=== PATIENT | female | born 1970 | race Caucasian/White ===

== ENCOUNTER 2019-09-20 10:20 | Emergency (ER) | payer BC, SELFPAY ==
--- NOTE | ~2019-09-20 | XR_ITS ---
EXAMINATION: XR chest 1V portable DATE: 09/20/2019 11:11 INDICATION: Cough and right flank pain TECHNIQUE: frontal view of the chest was obtained. COMPARISON: Chest radiograph dated 08/06/2018 FINDINGS: Patchy airspace opacities in the left mid and bilateral lower lung zones. No pleural effusion or pneu mothorax. The cardiomediastinal silhouette is normal. Mild thoracic dextroscoliosis. IMPRESSION: 1. Patchy bilateral airspace disease concerning for pneumonia with differential including atelectasis or less likely pulmonary edema. Reviewed, dictated and finalized at location A.
[2019-09-20 10:51] VITALS: BP 128/88; PULSE 96; RESP 18; TEMP 36.9; O2SAT 95
[2019-09-20 10:57] LABS: Basophils Percent Auto 0.2 % (0.2-1.2); Hematocrit 39.1 % (37.0-47.0); Hemoglobin 12.9 g/dL (12.0-15.0); Immature Granulocyte Absolute 0.02 K/mm3 (0.00-0.031); Immature Granulocyte Percent A 0.3 % (0-0.5); Lymphocytes Absolute Auto 1.61 K/mm3 (0.9-3.2); Mean Corpuscular Hemoglobin 28.3 pg (26-34); Mean Corpuscular Volume 85.7 fl (80-100); Mean Platelet Volume 10.3 fl (7.4-10.4); Monocytes Absolute Auto 0.4 K/mm3 (0.1-0.6); Monocytes Percent Auto 7.2 % (2.6-8.5); Neutrophils Absolute Auto 3.9 K/mm3 (1.3-6.7); Neutrophils Percent Auto 65.3 % (45.5-73.1); Platelet Count Result 234 k/mm3 (150-375); Red Blood Count 4.56 M/mm3 (4.2-5.4); Red Cell Distribution Width 13.7 % (11.5-14.5)
[2019-09-20 11:00] LABS: Add Urine Microscopic? YES; Appearance Urine Clear (Clear); Bacteria Urine Trace /hpf; Bilirubin Urine Negative (Negative); Blood Urine 2+ (Negative); Color Urine Yellow (Yellow); Glucose Urine UA Negative (Negative); Ketones Urine Negative (Negative); Leukocyte Esterase Ur Negative LEU/UL (Negative); Mucus Urine Rare /lpf; Nitrate Urine Negative (Negative); Protein Urine Negative (Negative); Specific Grav Ur 1.011 (1.001-1.035); Squamous Epithelial Cell Urine Moderate /hpf (Few); Urobilinogen Urine Negative mg/dL (<2.0); WBC Urine 0-3 /hpf
--- NOTE | 2019-09-20 11:04 | ED.ABDPAIN ---
HPI - Abdominal Pain General Chief Complaint: Abdominal Pain <BARBI Fan Last Filed: 09/20/19 12:33> Stated Complaint: r flank pain <BARBI Fan Last Filed: 09/20/19 12:33> Time Seen by Provider: 09/20/19 10:23 <BARBI Fan Last Filed: 09/20/19 12:33> Source: patient <BARBI Fan Last Filed: 09/20/19 12:33> Mode of arrival: ambulatory <BARBI Fan Last Filed: 09/20/19 12:33> Limitations: no limitations <Francesco Garcia PA-C - Last Filed: 09/20/19 12:33> History of Present Illness HPI narrative: Patient is a 49-year-old female who presents to emergency department for evaluation of right CVA pain worse with movement noting some nausea is also been having congestion productive cough of green phlegm with fever and chills has been taking [id number] medications with minimal improvement on arrival to emergency department patient in the room in no distress patient denies dysuria hematuria. Patient notes she had some loose stools that started today. Patient denies any dyspnea <BARBI Fan Last Filed: 09/20/19 12:33> Related Data Home Medications: Home Medications Medication Instructions Recorded Confirmed L norgest/e.estradiol-e.estrad 09/20/19 amitriptyline 09/20/19 diclofenac sodium mg PO 09/20/19 gabapentin 09/20/19 <BARBI Fan Last Filed: 09/20/19 12:33> Allergies/Adverse Reactions: Allergies Allergy/AdvReac Type Severity Reaction Status Date / Time No Known Allergies Allergy Unknown Unknown Verified 09/20/19 11:03 <BARBI Fan Last Filed: 09/20/19 12:33> Review of Systems Review of Systems: All systems reviewed & are unremarkable except as noted in HPI and below <BARBI Fan Last Filed: 09/20/19 12:33> PMFSH Family History Family History: Family History (Updated 06/04/18 @ 13:09 by DOCTOR UNKNOWN) Father Malignant neoplasm of prostate Family history of diabetes mellitus in first degree relative Diabetes mellitus Grandparent Family history of malignant neoplasm of breast Family history of cardiovascular disease Family history of emphysema Family history of malignant neoplasm of breast in first degree relative Mother Family history of rheumatic fever Family history of heart disease in male family member before age 55 Patient's mother is Acute myocardial infarction Family history of arthritis Family history of cardiovascular disease Other Cerebrovascular accident Family history of chronic obstructive pulmonary disease <Francesco Garcia PA-C - Last Filed: 09/20/19 12:33> Social History Social History: Social History Smoking status: Former smoker Second hand tobacco smoke exposure: No Smoking end date: 06/25/06 Alcohol intake: never <Francesco Garcia PA-C - Last Filed: 09/20/19 12:33> Exam Narrative: Exam Narrative: GENERAL: Well-appearing, well-nourished, and in no acute distress. HEAD: Normocephalic, atraumatic. EYES: PERRLA and EOMI. ENT: Nares clear, no rhinorrhea or epistaxis. Mucous membranes moist. NECK: Supple. No adenopathy or masses. CHEST: Clear to auscultation. No respiratory distress. No wheezes rales or rhonchi HEART: Regular rate and rhythm. No murmur heard. EXTREMITIES: Normal range of motion. No edema. SKIN: Warm, dry, no rash. NEURO: No focal deficits. Alert and oriented x3. Cranial nerves II through XII grossly intact PSYCH: Normal mood and affect. <Francesco Garcia PA-C - Last Filed: 09/20/19 12:33> Course Course Emergency Course: Patient in the room in no distress aware of case findings treatment plan and diagnosis agreeing to follow-up as directed or to return if symptoms worsen or concerns. Patient was able to ambulate without becoming hypoxic. Patient with
--- NOTE | 2019-09-20 11:06 | PC.NURSE ---
report to [facility], to continue care
[2019-09-20 11:12] LABS: Alanine Aminotransferase 22 U/L (4-35); Alkaline Phosphatase 88 U/L (38-126); Aspartate Amino Transferase 39 U/L (14-36); Bilirubin,Total 0.3 mg/dL (0.2-1.3); Blood Urea Nitrogen 8 mg/dL (7-17); Calcium 8.4 mg/dL (8.4-10.2); Carbon Dioxide 22 mmol/L (22-30); Chloride 105 mmol/L (98-107); Estimated CRCL calculation 81 ml/min; Estimated Glomerular Filt Rate > 60; Glucose 97 mg/dL (65-105); Potassium 3.4 mmol/L (3.4-5.0); Sodium 136 mmol/L (137-145)
[2019-09-20] MEDS: SODIUM CHLORIDE 0.9% IV 1,000 ML 999 ML IV CONT (11:12)
[2019-09-20] MEDS: ONDANSETRON INJ 4 MG/2 ML VIAL IV PUSH (11:13)
[2019-09-20] MEDS: FAMOTIDINE 20 MG/2 ML VIAL IV PUSH (11:14)
[2019-09-20 12:44] VITALS: BP 126/84; PULSE 87; RESP 18; O2SAT 96
--- NOTE | 2019-09-25 11:38 | PC.NURSE ---
LATE ENTRY This note is being entered to document information to the patient's record. The following information was omitted on [09/20/19], by [donnie leiva]. ns start 1112 end 1200
[2019-09-29 08:04] LABS: SARS-CoV-2 RNA: Positive
[2019-09-29 08:10] LABS: Pan-SARS RNA: Positive
== END 2019-09-20 12:47 | disposition home or self-care (01) ==
PROVIDERS: Emergency Medicine Emergency Medical Services; Emergency Provider Emergency Medicine
DX: J12.89 Other viral pneumonia (principal); B97.29 Other coronavirus as the cause of diseases classified elsewhere; Z87.891 Personal history of nicotine dependence
CPT/HCPCS: 36415; 71045; 80053; 81001; 81025; 85025; 87635; 96361; 96374; 96375; 99284; J2405; J7030; U0002

== ENCOUNTER 2021-01-04 09:41 | Outpatient (CLI) | payer BC, SELFPAY ==
--- NOTE | ~2021-01-04 | MM_ITS ---
EXAMINATION: MM screening pool BI w yoan HISTORY: Screening mammogram TECHNIQUE: Craniocaudal and mediolateral oblique 3-D tomosynthesis images were obtained and synthetic 2-D images were generated. CAD analysis was submitted and interpreted. COMPARISON: 08/28/2014, 09/11/2012 bilateral digital screening mammogram examinations BREAST PARENCHYMAL COMPOSITION: There are scattered areas of fibroglandular density. FINDINGS: There is no evidence of suspicious mass, calcification, or architectural distortion to sugg est malignancy in either breast. There has been no suspicious interval change. IMPRESSION: 1. No mammographic evidence of malignancy. 2. Recommend routine screening mammography in one year. BI-RADS Category 1: Negative Reviewed, dictated and finalized at location B.
== END 2021-01-04 09:42 | disposition home or self-care (01) ==
LOC: ANHIMG 09:43
PROVIDERS: PCP Family Medicine; Visit Provider Family Medicine
DX: Z12.31 Encounter for screening mammogram for malignant neoplasm of breast (principal)
CPT/HCPCS: 77063; 77067

== ENCOUNTER 2022-04-13 17:09 | Emergency (ER) | payer BC, SELFPAY ==
--- NOTE | 2022-04-13 17:11 | ED.URI ---
HPI - URI/Sore Throat General Chief Complaint: Skin/Abscess/Foreign Body Stated Complaint: Rash/Sore Throat Time Seen by Provider: 04/13/22 17:11 Source: patient Mode of arrival: ambulatory Limitations: no limitations History of Present Illness HPI Narrative: Ms. Walker is a 51-year-old female patient's presenting to the clinic today with complaints of sore throat and a rash to her face. She reports that the rash began 2 days ago. States that the rash is itching and burning when scratched. She reports the sore throat began yesterday and is a painful on the left side of her throat. She denies any fever or chills. She denies any known environmental changes, foods, lotions, or medications MD elicited complaint: sore throat and nasal congestion Related Data Home Medications Medication Instructions Recorded Confirmed L norgest/E estradiol-E estrad 09/20/19 0.10 mg-20 mcg (84)/10 mcg(7) tabs,3mos amitriptyline 09/20/19 diclofenac sodium 100 mg mg PO 09/20/19 tablet,extended release 24 hr gabapentin 300 mg capsule 09/20/19 Allergies Allergy/AdvReac Type Severity Reaction Status Date / Time No Known Allergies Allergy Unknown Unknown Verified 09/22/19 13:36 Review of Systems Review of Systems: Pertinent positives per HPI. Patient denies any fever, chills, headache, visual changes, dizziness, cough, shortness of breath, chest pain, palpitations, nausea, vomiting, diarrhea, constipation, abdominal pain, or any urinary issues. [facility] Family History Family History Father Malignant neoplasm of prostate Family history of diabetes mellitus in first degree relative Diabetes mellitus Grandparent Family history of malignant neoplasm of breast Family history of cardiovascular disease Family history of emphysema Family history of malignant neoplasm of breast in first degree relative Mother Family history of rheumatic fever Family history of heart disease in male family member before age 55 Patient's mother is Acute myocardial infarction Family history of arthritis Family history of cardiovascular disease Other Cerebrovascular accident Family history of chronic obstructive pulmonary disease Social History Social History Smoking status: Former smoker Second hand tobacco smoke exposure: No Smoking end date: 06/25/06 Alcohol intake: never Comments At the time of my signature, I reviewed and agree with the nursing past medical, surgical, social, and family history. There is no relevant family history pertinent to the patient complaint. Exam Narrative: General: Well-developed, well nourished, in no apparent distress Head: Normocephalic, atraumatic Eyes: Pupils equally round and reactive to light bilaterally, EOM intact, sclera and conjunctive clear, no discharge, lids normal Ears: TMs intact and dull, ear canals clear, no drainage, grossly hearing normal. Nose: Nares patent, no nasal discharge, no inflammation, no sinus tenderness. Mouth: Oral pharynx without lesions or masses, good dentition, MMM. Postnasal drip Neck: Supple, trachea midline, no enlargement of anterior or posterior cervical nodes, no thyroid masses or goiter palpable. Cardio: Regular rate and rhythm, s1 and s2 normal, no murmur appreciated. Resp: Clear to auscultation bilaterally, no rhonchi, rales, wheezing or rubs Course Course Emergency Course: Portions of this record may have been created with voice recognition software. Level of Care: Express Care Visit Vital Signs Vital signs: Vital signs reviewed MDM - URI/Sore Throat MDM Narrative Medical decision making narrative: At the time of visit patient is resting comfortably on the exam table. Strep screen was obtained Differential Diagnosis Differential diagnosis: Likely upper respiratory infection, otitis medi
[2022-04-13 17:16] VITALS: BP 123/86; PULSE 58; RESP 16; TEMP 36.9; O2SAT 99
[2022-04-13 17:22] VITALS: BP 123/86; PULSE 58; RESP 16; TEMP 36.9; O2SAT 99
== END 2022-04-13 17:48 | disposition home or self-care (01) ==
PROVIDERS: Emergency Provider Nurse Practitioner Family; PCP Family Medicine
DX: L30.9 Dermatitis, unspecified (principal); J02.9 Acute pharyngitis, unspecified; Z87.891 Personal history of nicotine dependence
CPT/HCPCS: 87081; 87880; 99213; G0463

== ENCOUNTER 2022-08-24 11:16 | Emergency (ER) | payer BC, SELFPAY ==
[2022-08-24 11:20] VITALS: BP 120/64; PULSE 87; RESP 20; TEMP 36.2; O2SAT 97
--- NOTE | 2022-08-24 11:22 | ED.URI ---
HPI - URI/Sore Throat General Chief Complaint: Upper Respiratory Infection Stated Complaint: Sore Throat Source: patient and RN notes reviewed History of Present Illness HPI Narrative: 51-year-old female presents to urgent care with complaints of nasal congestion that started on Sunday which has now gone down to her chest. Patient reports associated body aches, lethargy, sore throat, headache, chest burning, some shortness of breath. Patient states she woke up the other morning feeling like her throat was closing in but realized it was excessive mucus. Patient reports a temperature of 99? F the other day. Patient denies any vomiting or diarrhea. Patient has been taking Mucinex at home with minimal relief. Some parts of this dictation were generated by voice recognition software and may contain typographical and/or grammatical inaccuracies. Related Data Home Medications Medication Instructions Recorded Confirmed escitalopram oxalate 20 mg tablet 20 mg DIRECTED 08/24/22 08/24/22 Allergies Allergy/AdvReac Type Severity Reaction Status Date / Time No Known Allergies Allergy Unknown Unknown Verified 09/22/19 13:36 Review of Systems Review of Systems: CONSTITUTIONAL: Denies fever, chills, or sweats. EYES: Denies visual changes, redness, or discharge. ENT: Reports congestion and sore throat CARDIOVASCULAR: Denies chest pain, palpitations, or edema. Reports chest ?burning and chest congestion. ? RESPIRATORY: Reports cough and some shortness of breath. GASTROINTESTINAL: Denies abdominal pain, nausea, vomiting, or diarrhea. GENITOURINARY: Denies dysuria or hematuria. SKIN: Denies rash or itching. MUSCULOSKELETAL: myalgia. NEUROLOGIC: Headache PMFSH Family History Family History Father Malignant neoplasm of prostate Family history of diabetes mellitus in first degree relative Diabetes mellitus Grandparent Family history of malignant neoplasm of breast Family history of cardiovascular disease Family history of emphysema Family history of malignant neoplasm of breast in first degree relative Mother Family history of rheumatic fever Family history of heart disease in male family member before age 55 Patient's mother is Acute myocardial infarction Family history of arthritis Family history of cardiovascular disease Other Cerebrovascular accident Family history of chronic obstructive pulmonary disease Social History Social History Smoking status: Former smoker Second hand tobacco smoke exposure: No Smoking end date: 06/25/06 Alcohol intake: never Comments At the time of my signature, I reviewed and agree with the nursing past medical, surgical, social, and family history. There is no relevant family history pertinent to the patient complaint. Exam Narrative: GENERAL: This is a well-nourished, well-developed patient, in no apparent distress. HEAD: normocephalic, atraumatic. EYES: PERRL. Sclera clear/white. Vision is grossly intact. EARS: External ears normal, auditory canals clear and without drainage, TMs normal without perforation. Hearing grossly intact. NOSE: External nose normal with no obvious nasal discharge, nares without redness, no rhinorrhea. THROAT: Mucous membranes moist, posterior pharynx clear. NECK: Neck supple, non-tender without lymphadenopathy, masses or thyromegaly. CARDIOVASCULAR: Regular rate and rhythm without murmurs, gallops, or rubs. RESPIRATORY: Clear to auscultation. Breath sounds equal bilaterally. No wheezes, rales, or rhonchi. GASTROINTESTINAL: Abdomen soft, non-tender, nondistended. Bowel sounds are active. No hepato-splenomegaly, or palpable masses. No guarding. SKIN: warm, intact with no suspicious lesions or rash, good texture and turgor. NEURO: awake, alert, and oriented to person, place and time. There were no obvious
== END 2022-08-24 11:50 | disposition home or self-care (01) ==
PROVIDERS: Emergency Provider Nurse Practitioner Family
DX: J02.9 Acute pharyngitis, unspecified (principal); Z87.891 Personal history of nicotine dependence
CPT/HCPCS: 87081; 87880; 99213; G0463

== ENCOUNTER 2023-03-15 07:05 | Outpatient (CLI) | payer BC, SELFPAY ==
--- NOTE | ~2023-03-15 | XR_ITS ---
Cervical Spine: AP, lateral, open-mouth views Clinical History: Pain Findings: The normal lordotic curve is maintained. The vertebral bodies and posterior elements appea r intact. The intervertebral disc spaces are well maintained. Pre-vertebral soft tissues are unremar kable. Impression: No significant abnormality is seen. Reviewed, dictated and finalized at [facility]. Impression: No significant abnormality is seen.
== END 2023-03-15 07:06 ==
LOC: MICIMG 07:06
PROVIDERS: PCP Family Medicine; Visit Provider Family Medicine
DX: M54.12 Radiculopathy, cervical region (principal)
CPT/HCPCS: 72050

== ENCOUNTER 2024-02-08 14:12 | Emergency (ER) | payer BC, SELFPAY ==
[2024-02-08 14:17] VITALS: BP 116/83; PULSE 66; RESP 16; TEMP 37.5; O2SAT 100
--- NOTE | 2024-02-08 14:22 | ED.EAR ---
HPI - Ear Problem General Chief complaint: Ear Stated complaint: Right Ear Bleeding Time Seen by Provider: 02/08/24 14:22 Source: patient, RN notes reviewed and old records reviewed Mode of arrival: ambulatory Limitations: no limitations History of Present Illness HPI Narrative: 53-year-old female presents to the [facility] with complaints of bleeding from the right ear. Noticed some dry blood yesterday. Use a Q-tip and had some increased bleeding. Bleeding is now controlled non noted externally. Patient states she does use Q-tips on a regular basis. Related Data Home Medications Medication Instructions Recorded Confirmed escitalopram oxalate 20 mg tablet 20 mg DIRECTED 08/24/22 08/24/22 semaglutide (weight loss) 0.5 mg subcut 02/08/24 02/08/24 mg/0.5 mL subcutaneous pen injector (Wegovy) Allergies Allergy/AdvReac Type Severity Reaction Status Date / Time No Known Allergies Allergy Unknown Unknown Verified 09/22/19 13:36 Review of Systems Review of Systems: All systems reviewed & are unremarkable except as noted in HPI and below Constitutional: Constitutional: Reports no additional constitutional complaints Eyes: Eyes: Reports no additional eye complaints ENT: Reports as per HPI Cardiovascular: Cardiovascular: Reports no additional cardiovascular complaints, Denies chest pain and Denies dyspnea Respiratory: Respiratory: Reports no additional respiratory complaints, Denies chest congestion, Denies cough and Denies dyspnea Gastrointestinal: Gastrointestinal: Reports no additional gastrointestinal complaints, Denies abdominal pain, Denies nausea and Denies vomiting Musculoskeletal: Musculoskeletal: Reports no additional musculoskeletal complaints Integumentary/Breasts: Skin/Breast: Reports system reviewed and no additional complaints, except as docu Neurologic: Reports system reviewed and no additional complaints, except as documented Psychiatric: Psychiatric: Reports no additional psychiatric complaints Allergic/Immunologic: Allergic/Immunologic: Reports no additional allergic/immunologic complaints [facility] Family History Family History Father Malignant neoplasm of prostate Family history of diabetes mellitus in first degree relative Diabetes mellitus Grandparent Family history of malignant neoplasm of breast Family history of cardiovascular disease Family history of emphysema Family history of malignant neoplasm of breast in first degree relative Mother Family history of rheumatic fever Family history of heart disease in male family member before age 55 Patient's mother is Acute myocardial infarction Family history of arthritis Family history of cardiovascular disease Other Cerebrovascular accident Family history of chronic obstructive pulmonary disease Social History Social History Smoking status: Former smoker Second hand tobacco smoke exposure: No Smoking end date: 06/25/06 Alcohol intake: never Comments At the time of my signature, I reviewed and agree with the nursing past medical, surgical, social, and family history. There is no relevant family history pertinent to the patient complaint. Exam Const: General: cooperative, healthy appearing, comfortable, no acute distress, well developed, alert and well nourished Nutritional Appearance: well nourished Orientation/consciousness: patient oriented x3 Limitations: no limitations HENMT: Head: normal to inspection Ears: hearing grossly normal bilaterally, external ears normal, TM's normal bilaterally, mastoids normal, no periauricular adenopathy, Abnormal EAC present erythema on the right, edema on the right (mild lower aspect) and otic discharge bloody and other (Dry blood noted to the lower ear canal, concern for underlying abrasion) Face/Nose/Sinus: Normal external nose present, Leslie
== END 2024-02-08 14:39 | disposition home or self-care (01) ==
PROVIDERS: Emergency Provider Nurse Practitioner; PCP Family Medicine
DX: S00.412A Abrasion of left ear, initial encounter (principal); X58.XXXA Exposure to other specified factors, initial encounter; Z87.891 Personal history of nicotine dependence
CPT/HCPCS: 99213; G0463